=== PATIENT | male | born 2000 | race Caucasian/White ===

== ENCOUNTER 2023-07-28 22:08 | Emergency (ER) | payer OTHER, SELFPAY ==
[2023-07-28 22:08] VITALS: BMI 35.4
[2023-07-28 22:12] VITALS: BP 156/102
[2023-07-28 22:27] LABS: Hematocrit 44.3 % (39.0-52.0); Hemoglobin 15.8 g/dL (13.0-18.0); Mean Corp Hgb Conc. 35.7 g/dL (33.0-37.0); Mean Corpuscular Hgb 30.6 pg (27.0-31.0); Mean Corpuscular Volume 85.7 fL (80.0-94.0); Platelet Count 375 10^3/uL (130-400); Red Blood Cell Count 5.17 10^6/uL (4.70-6.10); Red Cell Dist. Width 12.2 % (11.5-14.5); White Blood Cell Count 8.8 10^3/uL (4.8-10.8)
[2023-07-28 22:40] LABS: ALT (SGPT) 53 U/L (0-50); AST (SGOT) 36 U/L (17-59); Albumin 4.5 g/dl (3.5-5.0); Alkaline Phosphatase 78 U/L (38-126); Blood Urea Nitrogen 12 mg/dl (9-20); Calcium 9.4 mg/dl (8.4-10.2); Carbon Dioxide 27 mmol/L (22-30); Chloride 105 mmol/L (98-107); Glucose 103 mg/dl (70-99); Potassium 3.6 mmol/L (3.5-5.1); Sodium 137 mmol/L (135-145); Total Bilirubin 0.6 mg/dl (0.2-1.3); Total Protein 7.5 g/dl (6.3-8.2); eGFR > 60.00
[2023-07-28 22:51] LABS: Troponin I < 0.012 ng/ml
[2023-07-28 23:42] VITALS: BP 141/72
[2023-07-29] VITALS: BP 150/83
--- NOTE | 2023-07-29 00:49 | ED.GENMED ---
History of Present Illness
<BILL Rivera - Last Filed: 07/29/23 01:02>
General
Chief Complaint: Extremity Pain (non-traumatic)
Source: patient and family
Exam Limitations: none
Time Seen by Provider: 07/29/23 00:33
Nursing documentation reviewed up to this point in time: agreed with
Travel History
Have you had any contact with someone who has COVID-19?: No
Do you have any symptoms of coronavirus? Fever > 100 degrees, chills, cough, shortness of breath, sore throat, loss of taste or smell, muscle aches, or headache?: No
History of Present Illness
History of Present Illness:
Pt is a 22yo male with no pertinent PMH presents today with left sided back and chest pain. Pt states that this morning he noticed pain in the left side of his midback which then began to wrap around under his axilla to the side of his chest. Pt
states that the pain has worsened throughout the day to a current 6-7/10. Pain worsens with walking and movement. Took advil at 9pm with no relief. 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
injury. Denies SOB, abdominal pain, neck pain, palpitations, prior injury to shoulder or neck.
Past History
<BILL Rivera - Last Filed: 07/29/23 01:02>
Social History
Tobacco: Non-smoker
Alcohol: None
Drug: None
Review of Systems
<BILL Rivera - Last Filed: 07/29/23 01:02>
Review of Systems
Allergies reviewed?: Yes
Other source history: family
All Other Systems: ROS reviewed and negative except as documented in HPI and ROS
Phy Exam
<BILL Rivera - Last Filed: 07/29/23 01:02>
General Physical Exam
General Presentation: well appearing and no apparent distress
General Skin: warm and dry
General Mental: alert
General Hydration: appears well hydrated
ENT Exam
ENT Exam: neck supple, normocephalic and swallowing well
Eye Exam
Eye Exam: PERRL and conjunctiva normal
Cardiovascular Exam
Cardiovascular Exam: regular rate/rhythm, no edema, no gallop, no murmur and normal peripheral pulses
Pulmonary Exam
Pulmonary Exam: lungs clear, no respiratory distress, no rales, no crackles, no rhonchi, no wheezing and no cough
Gastrointestinal Exam
Gastrointestinal Exam: normal bowel sounds, non tender, soft and non distended
Neurological Exam
Neurological Exam: alert, oriented x3 and speech normal
Musculoskeletal Exam
Musculoskeletal Exam: full ROM and back tenderness (tenderness to palpation in left mid thoracic region wrapping around to left side of chest)
Skin Exam
Skin Exam: normal color and warm/dry
Psychiatric Exam
Psychiatric Exam: normal mood/affect
Course
<BILL Rivera - Last Filed: 07/29/23 01:02>
Orders/Labs/Results
Orders:
Orders
07/28/23 22:15
Electrocardiogram (*1) Urgent
Reason for Study: Chest Pain
EKG- Treatment ONCE
07/28/23 22:21
CMP [Comprehensive Metabolic Panel] Urgent
07/28/23 22:22
Complete Blood Count/No Diff Urgent
Troponin I Urgent
07/29/23 00:56
CXR2 [CR Chest - 2 Views ] Urgent
Comment:
Reason For Exam: chest pain
07/29/23 01:02
Ketorolac [Toradol] 60 mg IM NOW STA
07/29/23 01:03
Electrocardiogram (*1) Urgent
Reason for Study: Chest Pain
EKG- Treatment ONCE
Abnormal Lab Results
07/28/23
22:21
Glucose 103 H mg/dl
(70-99)
ALT 53 H U/L
(0-50)
07/28/23 22:22
07/28/23 22:21
Vital Signs
Initial and Last Documented VS:
Initial Vital Signs
Temp Pulse Resp BP Pulse Ox
98.1 F 110 18 156/102 98
07/28/23 22:12 07/28/23 22:12 07/28/23 22:12 07/28/23 22:12 07/28/23 22:12
Last Documented Vital Signs
Temp Pulse Resp BP Pulse Ox
98.1 F 89 14 141/83 99
07/28/23 22:12 07/29/23 01:00 07/29/23 01:00 07/29/23 01:00 07/29/23 00:45
<Shadia Mayen, DO - Last Filed: 07/29/23 02:00>
Orders/Labs/Results
Orders:
Orders
07/28/23 22:15
Electrocardiogram (*1) Urgent
Reason for Study: Chest Pain
EKG- Treatment ONCE
07/28/23 22:21
CMP [Comprehensive Metabolic Panel] Urgent
07/28/23 22:22
Complete Blood Count/No Diff Urgent
Troponin I Urgent
07/29/23 00:56
CXR2 [CR Chest - 2 Views ] Urgent
Comment:
Reason For Exam: chest pain
07/29/23 01:02
Ketorolac [Toradol] 60 mg IM NOW STA
07/29/23 01:03
Electrocardiogram (*1) Urgent
Reason for Study: Chest Pain
EKG- Treatment ONCE
Abnormal Lab Results
07/28/23
22:21
Glucose 103 H mg/dl
(70-99)
ALT 53 H U/L
(0-50)
07/28/23 22:22
07/28/23 22:21
Vital Signs
Initial and Last Documented VS:
Initial Vital Signs
Temp Pulse Resp BP Pulse Ox
98.1 F 110 18 156/102 98
07/28/23 22:12 07/28/23 22:12 07/28/23 22:12 07/28/23 22:12 07/28/23 22:12
Last Documented Vital Signs
Temp Pulse Resp BP Pulse Ox
98.1 F 89 14 141/83 99
07/28/23 22:12 07/29/23 01:00 07/29/23 01:00 07/29/23 01:00 07/29/23 00:45
<BILL Rivera - Last Filed: 07/29/23 01:02>
MDM/Problems Addressed
Differential Diagnosis Includes:
muscle strain, musculoskeletal injury, pneumothorax, PE
MDM/Problems Addressed:
pt is a 22 yo male with PMH of GERD who presents with left sided mid thoracic pain wrapping around to left side of chest
<Shadia Mayen DO - Last Filed: 07/29/23 02:00>
*Radiology
Radiology exam reviewed: preliminary read by ED provider (Chest x-ray is unremarkable.)
*Pulse Oximetry
Patient hypoxic: no
*EKG
Interpreted by ED Provider?: Yes
Interpretation: normal
Rate: normal
Rhythm: sinus
[place]: normal axis
Interval: normal interval
QRS Pattern: normal QRS
Ischemia: no ischemia
*Sales And Marketing Specialist Interpretation
Rate: normal
Interpretation: normal
Rhythm: sinus
*Critical Care Note
Total Time (30-74mins, 75-104mins- exclusive of procedures): Not Applicable
ED Attending Note
<BILL Rivera - Last Filed: 07/29/23 01:02>
-
Portions of this chart may have been created with voice recognition software.� Occasional wrong word or��sound alike� substitutions may have occurred due to the inherent limitations of voice recognition software.
<Shadia Mayen DO - Last Filed: 07/29/23 02:00>
ED Attending Note
Patient seen and examined by attending physician: Yes
I performed the substantive portion of visit, reviewed & personally made and approve the management plan that is documented in note by myself or ZARINA.: Yes
ED Attending Note:
This is a 22-year-old male with no significant past medical history complains of left posterior shoulder, left upper back pain that began this morning sometime after getting up and out of bed. Pain has been persistent throughout the day. He admits
the pain is worse when he is walking about, worse when he is moving his left arm, improves when he is sitting. He denies coughing or shortness of breath, pain is not worse when he takes a deep breath, no fevers or chills, no abdominal pain or flank
pain, no nausea nor vomiting, no diarrhea or constipation. No history of similar episodes of pain.
He took 1 Advil, 200 mg at 9 PM without significant relief.
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 but no definitive insightful injury.
No recent travel, no leg pain or swelling. No risk factors for thromboembolism.
22-year-old male appears his stated age, bright and alert, pleasant, appears in no acute distress. Lying [employer] on stretcher, appears quite comfortable. Mother is accompanying.
HEENT: Oral mucosa is moist. No rhinorrhea.
Neck is supple, nontender, no adenopathy. Full range of motion without difficulty nor pain.
Heart is regular rate and rhythm. No murmur nor rub.
Lungs are clear to auscultation, respirations are easy and nonlabored.
Abdomen is soft and nontender.
Back: No midline bony tenderness. There is mild/moderate tenderness left inferior rhomboid, with overlying mildly ropey rhomboid musculature. Mild tenderness left inferior scapular region. Palpation seems to exactly reproduce patient's pain
complaint.
Extremities: No clubbing or cyanosis no edema. Peripheral pulses are full and equal. Nontender. Full range of motion without difficulty nor pain.
Skin is warm and dry, normal color. Good turgor. No rash.
Neuro: Awake alert and oriented x 3. No focal neurodeficits. Gait is steady.
History and exam most consistent with musculoskeletal left thoracic back pain.
No risk factors for thromboembolism nor risk factors for CAD.
Moderate hypertension noted initially, has improved without intervention.
EKG performed at triage is nondiagnostic study showing significant artifact but underlying rhythm of normal sinus rhythm noted in lead III. Monitor shows normal sinus rhythm without ectopy. Will plan to repeat EKG for documentation purposes.
Concern for occult pneumonia, pleurisy thus will check chest x-ray.
Will medicate for pain with an IM dose of Toradol.
Labs are reassuring, within normal limits. Troponin is negative.
07/29/2023 0145 AM
Patient feeling improved after IM dose of Toradol, eager to be discharged to home.
Chest x-ray is unremarkable. Clear lung garcia. Normal heart size.
Recommend continuing ibuprofen and a prescription for ibuprofen 800 mg has been provided.
Recommend supportive measures, local warm compresses, avoid heavy lifting.
Prompt follow-up with PCP for recheck.
Discharge Plan
Departure
Patient Disposition: Home (Routine Discharge)
Date of Disposition: 07/29/23
Time of Disposition: 01:46
Patient with high blood pressure during this ER visit?: Yes
Condition: Good
Discharge Problem:
Acute left-sided thoracic back pain
Instructions: Upper Back Pain (DC), Muscle and Bone Pain (DC)
Prescriptions:
New
ibuprofen 800 mg tablet
800 mg PO QIDPRN PRN (Reason: pain, fever) Qty: 30 0RF
No Action
acetaminophen 325 MG tablet
650 mg PO Q4HPRN PRN (Reason: mild pain/fever) Qty: 1 0RF
polyethylene glycol 3350 17 GRAMS powder in packet
17 grams PO DAILYPRN PRN (Reason: constipation) Qty: 1 0RF
ibuprofen 200 MG tablet
400 - 600 mg PO Q6HPRN PRN (Reason: moderate pain) Qty: 1 0RF
Referrals:
NONE,* [Family Provider] - Call in 1-3 days for appt
Interventions
Interventions:
*Risk Screen - Suicide Last Done: 07/28/23 22:12
*Neglect/Abuse Screening Last Done: 07/28/23 22:12
ED-Musculoskeletal Assessment Last Done: 07/28/23 23:47
ED-Peripheral Vascular Assessment Last Done: 07/28/23 23:47
ED-Skin Assessment Last Done: 07/28/23 23:47
[2023-07-29 01:00] VITALS: BP 141/83
[2023-07-29] MEDS: TORADOL 60 MG IM (01:07)
== END 2023-07-29 01:52 | disposition home or self-care (01) ==
LOC: EMR 22:08
PROVIDERS: Emergency Medicine; EMERGENCY PHYSICIAN Emergency Medicine
DX: M54.6 Pain in thoracic spine (principal); R03.0 Elevated blood-pressure reading, without diagnosis of hypertension
CPT/HCPCS: 99284; 96372; 71046; 80053; 84484; 85027; 93005